=== PATIENT | male | born 1980 | race Caucasian/White ===

== ENCOUNTER 2016-04-07 16:56 | Inpatient (IN) | payer OTHER ==
[~2016-04-07] VITALS: Ht 175.3 cm; Wt 84.1 kg
[2016-04-07 17:00] VITALS: BP 125/80; PULSE 92; RESP 17; RESP 18; TEMP 98.2; O2SAT 98
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
[2016-04-07] MEDS ORDERED: MORPHINE SULFATE 4 MG/ML INJ IV PUSH ONE ×2 (17:15→19:00)
[2016-04-07] MEDS ORDERED: ONDANSETRON HCL 4 MG/2 ML VIAL IV PUSH ONE (17:15)
[2016-04-07] MEDS ORDERED: METH500T3 PO (17:17)
[2016-04-07] MEDS ORDERED: GABA300C5 PO (17:17)
[2016-04-07] MEDS ORDERED: OXYC30TA PO (17:17)
[2016-04-07 17:45] LABS: AUTOMATED NEUTROPHIL # 7.1 TH/MM3 (1.8-7.7); BASOPHIL % 0.4 % (0.0-2.0); EOSINOPHIL # 0.1 TH/MM3 (0-0.4); EOSINOPHIL % 1.4 % (0.0-4.0); HEMATOCRIT 39.2 % (39.0-51.0); HEMO FLAGS DIFF FINAL; LYMPH % 16.8 % (9.0-44.0); LYMPHOCYTE # 1.7 TH/MM3 (1.0-4.8); MEAN CELL VOLUME 88.3 FL (80.0-100.0); MEAN CORPUSCULAR HEMOGLOBIN 29.2 PG (27.0-34.0); MONO % 12.3 % (0.0-8.0); NEUT % 69.1 % (16.0-70.0); PLATELET COUNT 253 TH/MM3 (150-450); RED BLOOD COUNT 4.44 MIL/MM3 (4.50-5.90); RED CELL DISTRIBUTION WIDTH 13.5 % (11.6-17.2); WHITE BLOOD COUNT 10.2 TH/MM3 (4.0-11.0)
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
[2016-04-07 18:04] LABS: BICARBONATE 30.6 MEQ/L (21.0-32.0); POTASSIUM 3.4 MEQ/L (3.5-5.1)
[2016-04-07] MEDS ORDERED: HYDROmorphone HCL PF 1 MG/ML VIAL IV PUSH ONE (19:15)
[2016-04-07 19:18] VITALS: BP 125/82; PULSE 80; PULSE 82; RESP 17; TEMP 97.8; O2SAT 99
[2016-04-07 21:09] VITALS: BP 120/82; PULSE 87; RESP 18; TEMP 98.1; O2SAT 99
[2016-04-07] MEDS ORDERED: POTASSIUM CHLORIDE 20 MEQ CONTROLLED RELEASE TAB PO ONE (21:15)
[2016-04-07] MEDS ORDERED: ONDANSETRON HCL 4 MG/2 ML VIAL IVP PRN (21:30)
[2016-04-07] MEDS ORDERED: ACETAMINOPHEN 325 MG TAB PO PRN ×2 (21:30)
[2016-04-07] MEDS ORDERED: HEPARIN SODIUM - SQ 10,000 UNITS/ML VIAL SQ SCH (21:30)
[2016-04-07] MEDS ORDERED: NALOXONE HCL 0.4 MG/ML AMP IV PRN (21:30)
[2016-04-07] MEDS: NICOTINE 14 MG/24 HR PATCH TD SCH ×2 (21:30→22:08)
[2016-04-07] MEDS ORDERED: TEMAZEPAM 15 MG CAP PO PRN (21:30)
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
[2016-04-07] MEDS: HEPARIN SODIUM - SQ 10,000 UNITS/ML VIAL ONE ×2 (22:05→22:07)
[2016-04-07] MEDS: DOCUSATE SODIUM 100 MG CAP PO SCH (22:55)
[2016-04-07] MEDS: HYDROmorphone HCL PF 1 MG/ML VIAL IV PRN (22:59)
[2016-04-07] MEDS ORDERED: SODIUM CHLOR 0.9% 1000 ML INJ 1,000 ML IV SCH (23:00)
[2016-04-08] MEDS: HYDROmorphone HCL PF 1 MG/ML VIAL IV PRN ×2 (05:25→07:32)
[2016-04-08 06:15] LABS: BICARBONATE 28.8 MEQ/L (21.0-32.0); POTASSIUM 3.6 MEQ/L (3.5-5.1)
[2016-04-08 07:37] VITALS: BP 115/82; PULSE 86; RESP 19; O2SAT 98
[2016-04-08] MEDS: NICOTINE 14 MG/24 HR PATCH TD SCH (08:23)
[2016-04-08] MEDS: SODIUM CHLORIDE 0.9% FLUSH 5 ML FLUSH FLUSH SCH ×2 (08:23→20:19)
[2016-04-08] MEDS: GABAPENTIN 300 MG CAP PO SCH ×2 (08:23→20:17)
[2016-04-08] MEDS: METHOCARBAMOL 500 MG TAB PO SCH (08:23)
[2016-04-08] MEDS: SENNOSIDES 8.6 MG TAB PO SCH (08:24)
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
[2016-04-08] MEDS ORDERED: MIDAZOLAM HCL 2 MG/2 ML VIAL ONE (11:22)
[2016-04-08] MEDS ORDERED: ACETAMINOPHEN 1000 MG/100 ML VIAL IV ONE (11:22)
[2016-04-08] MEDS ORDERED: FAMOTIDINE 20 MG/2 ML VIAL ONE (11:22)
[2016-04-08] MEDS ORDERED: fentaNYL CITRATE 250 MCG/5 ML AMP ONE (11:22)
[2016-04-08] MEDS ORDERED: DEXAMETHASONE SOD PHOS 4 MG/ML VIAL ONE (11:23)
[2016-04-08] MEDS ORDERED: HYDROmorphone HCL PF 2 MG/ML VIAL ONE (11:23)
[2016-04-08] MEDS ORDERED: GENTAMICIN SULFATE 80 MG/2 ML VIAL ONE (11:48)
[2016-04-08] MEDS ORDERED: VANCOMYCIN HCL 1000 MG VIAL ONE (12:04)
[2016-04-08] MEDS ORDERED: ceFAZolin 2 GM PREMIX 50 ML ONE (12:04)
[2016-04-08] MEDS ORDERED: SODIUM CHLOR 0.9% 250 ML INJ 250 ML ONE (12:31)
[2016-04-08] MEDS ORDERED: BACITRACIN TOP OINT 15 GM TUBE ONE ×2 (14:22→14:23)
[2016-04-08] MEDS ORDERED: PROPOFOL 200 MG/20 ML AMP IV ONE (14:26)
[2016-04-08] MEDS ORDERED: PHENYLEPH/NS 1000 MCG/10 ML SYR IV ONE (14:26)
[2016-04-08] MEDS ORDERED: NEOSTIGMINE 3 MG/3 ML SYR IV ONE (14:26)
[2016-04-08] MEDS ORDERED: ONDANSETRON HCL 4 MG/2 ML VIAL IV PUSH ONE (14:26)
[2016-04-08] MEDS ORDERED: SODIUM CHLORIDE 0.9% FLUSH 5 ML FLUSH IVF PRN (14:30)
[2016-04-08] MEDS ORDERED: ACETAMINOPHEN/HYDROcodone 325 MG/10 MG TAB PO PRN ×2 (14:30)
[2016-04-08] MEDS ORDERED: Post-op Orders (for Pharmacy) MISC XX ONE (14:30)
[2016-04-08] MEDS ORDERED: diphenhydrAMINE HCL 25 MG CAP PO PRN (14:30)
--- NOTE | 2016-04-08 14:32 | PD.OP ---
cc: Flako Lott MD Operative Report Date of Surgery: Apr 08, 2016 Preoperative Diagnosis: Comminuted right tibia and fibula shaft fractures Postoperative Diagnosis: Comminuted right tibia and fibula shaft fractures, distal tibia pilon fracture Procedure: Right tibial reduction and intramedullary nail fixation Surgeon: Flako Lott Guard Immigration(s): Cale Benavidez PA-C The surgical procedure was assisted by my physician car rental sales assistant. My P.A. presence was necessary throughout this case for the manipulation and positioning of the surgical extremity. My P.A. was assisting me throughout the duration of this procedure. The skill set of a physician car rental sales assistant was medically necessary to complete this procedure. During the surgical case the medical instrument technician was working at the back table and the physician car rental sales assistant was directly assisting me. Operation and Findings: Implants: ITS [10]mm x [360]mm tibial nail Plan of activity: Nonweightbearing Patient was seen and examined preoperatively. An informed consent was obtained from patient after detailed discussion of risk and benefits. Risks of surgery include bleeding, infection, painful hardware, nonunion, malunion, leg length discrepancy, need for hardware removal, and medical complications associated with anesthesia including blood clots, stroke, heart attack, and were discussed. Operative site was marked. Patient was brought to the operating room placed on or table. Patient received IV antibiotics and was given IV sedation GETA. Operative leg was prepped with alcohol Hibiclens and draped in usual sterile fashion. Timeout procedure was performed Procedure began with reduction of fracture. 2 small incisions were made around the fracture site. A percutaneous clamp was placed. Traction was applied. Fracture was reduced. There was comminution of the fracture. The fracture reduced and excellent alignment was achieved. Fracture clamp was used to aid in reduction. Next a 3 cm incision was made proximal to the patella. Quadriceps tendon was split in line with fibers. Cannulas were placed in the patellofemoral joint to protect the articular surface at all times. A guidepin was placed into the tibia and advanced in the tibial canal. Fluoroscopy was used to confirm appropriate guidepin placement. An opening reamer was used to open the tibial canal. A ball-tipped guidewire was advanced down the tibial canal. Guidepin was passed across the fracture site into the center of the distal tibia. Fluoroscopy confirmed guidepin placement. The nail length was now measured. The fracture was now held in a reduced position and the canal was reamed. The canal was reamed up to appropriate size. A Synthes nail was now selected. Next the nail was fully seated. Using perfect venetie technique 4 distal interlocking screws were placed. Using the insertion handle as a guide 2 proximal interlocking screws were placed. Fluoroscopy confirmed excellent of fracture with well-placed hardware. Incisions and the knee joint were thoroughly irrigated with sterile saline. Patient was also found to have a split of the tibia Pilon. This fracture extended into the articular surface. A fracture tenaculum was placed around the distal tibia 3. Case incisions. The fracture was compressed and clamped into anatomic alignment. Fluoroscopy confirmed excellent alignment of the distal tibia. 2 small incisions were made anteriorly. 2 additional screws were placed from anterior to posterior to capture the posterior fragment. Fluoroscopy confirmed excellent alignment of fracture with well-placed hardware. Next attention was turned to wound closure. Fascia was closed with #1 Vicryl, subcutaneous tissues closed with 3-0 Vicryl and skin was closed with candido sterile dressings were applied patient was awakened and transferred to recovery in stable condition. Flako Lott MD Apr 08, 2016 14:32
[2016-04-08] MEDS ORDERED: DO NOT ADM ANY ANTICOAGULANT DRUGS XX PRN (14:52)
[2016-04-08] MEDS ORDERED: *MEPERIDINE 25 MG INJ VIAL PERIprocedural Use ONLY ONE (15:04)
[2016-04-08] MEDS ORDERED: *morphine SULFATE 8 MG/ML PERIprocedure ONLY ONE ×3 (15:17→15:40)
[2016-04-08] MEDS: LACTATED RINGER'S 1000 ML INJ 1,000 ML IV SCH ×2 (15:20→23:26)
--- NOTE | 2016-04-08 15:32 | RADRPT ---
EXAM DATE/TIME: 04/08/2016 13:05 [facility] COMPARISON: TIBIA/FIBULA RIGHT (AP/LAT), April 07, 2016, 17:21. INDICATIONS : ORIF Right tibia, IM nail. MEDICAL HISTORY : None. SURGICAL HISTORY : None. ENCOUNTER: Subsequent ACUITY: 2 days PAIN SCORE: Non-responsive. LOCATION: Right tibia FINDINGS: FINDINGS: There are postsurgical changes with operative reduction and internal fixation of the previously seen fracture. The alignment is anatomic. CONCLUSION: 1. Postsurgical changes as above. Zack Browne MD on April 08, 2016 at 15:30 Board Certified Radiologist. This report was verified electronically.
[2016-04-08] MEDS ORDERED: *HYDROmorphone PF 1 MG VIAL PERIprocedural Use ONLY ONE (16:00)
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
[2016-04-08] MEDS: CALCIUM/VITAMIN D 250 MG/125 U TAB PO SCH (18:00)
[2016-04-08] MEDS: SODIUM CHLORIDE 0.9% FLUSH 5 ML FLUSH FLUSH PRN (18:03)
[2016-04-08] MEDS: MORPHINE SULFATE 4 MG/ML INJ IV PUSH PRN ×2 (18:04→21:32)
[2016-04-08 18:15] VITALS: O2SAT 98
[2016-04-08 18:46] VITALS: BP 111/69; PULSE 68; RESP 16; TEMP 96; O2SAT 99
[2016-04-08 20:00] VITALS: BP 128/72; PULSE 73; RESP 20; TEMP 97.9; O2SAT 98
[2016-04-08] MEDS: ceFAZolin 2 GM PREMIX 50 ML IV SCH (20:17)
[2016-04-08] MEDS: oxyCODONE/ACETAMINOPHEN 10 MG/325 MG TAB PO PRN (20:18)
[2016-04-08] MEDS ORDERED: SODIUM CHLORIDE 0.9% FLUSH 5 ML FLUSH IVF SCH (21:00)
[2016-04-08] MEDS: DOCUSATE SODIUM 100 MG CAP PO SCH ×2 (23:26→23:29)
[2016-04-08] MEDS: KETOROLAC TROMETHAMINE 30 MG/ML (IVP) VIAL IVP SCH (23:27)
[2016-04-09] VITALS (7 sets, daily range): BP systolic 110–138; BP diastolic 62–74; PULSE 65–99; RESP 16–22; TEMP 96.9–99.7; O2SAT 97–100
[2016-04-09] MEDS: ENOXAPARIN SODIUM 40 MG/0.4 ML SYRINGE SQ SCH (03:29)
[2016-04-09] MEDS: ceFAZolin 2 GM PREMIX 50 ML IV SCH ×3 (05:42→20:09)
[2016-04-09] MEDS: KETOROLAC TROMETHAMINE 30 MG/ML (IVP) VIAL IVP SCH ×2 (05:46→13:15)
--- NOTE | 2016-04-09 06:43 | PD.ORT.PN ---
Subjective Subjective Remarks POD 1 s/p IMN right tibia doing well. pain controlled. no complaints. Objective Vitals Vital Signs Date Time Temp Pulse Resp B/P Pulse Ox O2 Delivery O2 Flow Rate FiO2 04/09/16 04:00 98.0 65 20 112/70 99 04/09/16 00:00 98.6 74 22 110/62 97 04/08/16 20:00 97.9 73 20 128/72 98 04/08/16 18:46 96.0 68 16 111/69 99 04/08/16 18:15 98 04/08/16 17:00 98.2 82 16 128/77 98 Room Air 04/08/16 16:30 76 16 127/76 98 Room Air 04/08/16 16:15 67 16 129/78 98 Room Air 04/08/16 16:00 69 15 135/81 98 Room Air 04/08/16 15:45 72 15 133/87 99 Room Air 04/08/16 15:30 70 15 139/81 99 Room Air 04/08/16 15:15 78 15 143/90 99 Room Air 04/08/16 14:54 98.0 64 14 152/94 99 Simple Mask 6 04/08/16 08:02 16 04/08/16 08:02 16 04/08/16 07:37 86 19 115/82 98 I/O 04/08/16 04/08/16 04/08/16 04/09/16 04/09/16 04/09/16 07:00 15:00 23:00 07:00 15:00 23:00 Intake Total 1100 ml 150 ml Output Total 100 ml Balance 1000 ml 150 ml Intake IV Total 150 ml Other 1100 ml Output Estimated Blood Loss 100 ml Result Diagram: 04/07/16 1715 04/08/16 0521 Objective Remarks RLE: dressings clean and dry. intact. NVI. good dorsiflexion of toes. neg ramona Assessment & Plan Assessment and Plan 1) Right Tibial Shaft Fx s/p IMN - POD 1 -NWB -elevate -dressing change POD 2 -plan for DC home tomorrow if pain controlled and ambulating safely -f/u with Jacob or PA in 2 weeks Tino Tristan Apr 09, 2016 06:43
--- NOTE | 2016-04-09 06:45 | HHI.FF ---
Face to Face Verification Diagnosis: (1) Fracture of tibia with fibula, right, closed Physical Therapy Gait training Right LE Weight Bearing: Non WB Right LE Range of Motion: Active ROM Nursing Dressing Changes: Daily dressing change, Robert wrap, 4x4s, Xeroform I have seen patient Charanjit West on 04/09/16. My clinical findings support the need for the requested home health care services because: Ltd mobility - disease progression I certify that my clinical findings support that this patient is homebound because: Post-op weakness Tino Tristan Apr 09, 2016 06:45
[2016-04-09] MEDS ORDERED: PERC10TA27 PO (06:46)
[2016-04-09] MEDS ORDERED: XARE10TA PO (06:46)
[2016-04-09] MEDS ORDERED: WALKER/ADULT/FO1 MIS (06:48)
[2016-04-09] MEDS: SODIUM CHLORIDE 0.9% FLUSH 5 ML FLUSH FLUSH SCH ×2 (09:00→20:11)
[2016-04-09] MEDS: GABAPENTIN 300 MG CAP PO SCH ×2 (10:01→20:09)
[2016-04-09] MEDS: CALCIUM/VITAMIN D 250 MG/125 U TAB PO SCH ×3 (10:01→17:11)
[2016-04-09] MEDS: SENNOSIDES 8.6 MG TAB PO SCH (10:01)
[2016-04-09] MEDS: METHOCARBAMOL 500 MG TAB PO SCH (10:01)
[2016-04-09] MEDS: NICOTINE 14 MG/24 HR PATCH TD SCH (10:02)
[2016-04-09] MEDS: DOCUSATE SODIUM 100 MG CAP PO SCH ×2 (10:05→23:36)
[2016-04-09] MEDS: MORPHINE SULFATE 4 MG/ML INJ IV PUSH PRN ×4 (10:05→23:37)
[2016-04-09] MEDS: LACTATED RINGER'S 1000 ML INJ 1,000 ML IV SCH ×2 (10:26→20:12)
[2016-04-09] MEDS: SODIUM CHLORIDE 0.9% FLUSH 5 ML FLUSH FLUSH PRN (13:16)
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
[2016-04-10] VITALS: BP 128/77; PULSE 116; RESP 19; TEMP 99.1; O2SAT 100
[2016-04-10] MEDS: oxyCODONE/ACETAMINOPHEN 10 MG/325 MG TAB PO PRN ×3 (00:35→17:50)
[2016-04-10] MEDS: ENOXAPARIN SODIUM 40 MG/0.4 ML SYRINGE SQ SCH (02:42)
[2016-04-10] MEDS: MORPHINE SULFATE 4 MG/ML INJ IV PUSH PRN ×7 (02:43→21:50)
[2016-04-10] MEDS: ceFAZolin 2 GM PREMIX 50 ML IV SCH ×2 (04:06→11:28)
[2016-04-10] MEDS: LACTATED RINGER'S 1000 ML INJ 1,000 ML IV SCH ×3 (05:56→23:12)
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
[2016-04-10] MEDS: CALCIUM/VITAMIN D 250 MG/125 U TAB PO SCH ×3 (07:39→17:02)
[2016-04-10] MEDS: SENNOSIDES 8.6 MG TAB PO SCH (07:39)
[2016-04-10] MEDS: SODIUM CHLORIDE 0.9% FLUSH 5 ML FLUSH FLUSH SCH ×2 (07:39→19:55)
[2016-04-10] MEDS: METHOCARBAMOL 500 MG TAB PO SCH (07:39)
[2016-04-10] MEDS: GABAPENTIN 300 MG CAP PO SCH ×2 (07:39→19:54)
[2016-04-10] MEDS: DOCUSATE SODIUM 100 MG CAP PO SCH ×2 (07:39→21:49)
[2016-04-10] MEDS: NICOTINE 14 MG/24 HR PATCH TD SCH (07:40)
[2016-04-10 08:00] VITALS: BP 129/80; PULSE 112; RESP 18; TEMP 97; O2SAT 99
[2016-04-10] MEDS: MAGNESIUM HYDROXIDE SUSP 30 ML CUP PO PRN (08:23)
[2016-04-10 11:34] VITALS: BP 127/78; PULSE 86; RESP 16; TEMP 98; O2SAT 95
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
[2016-04-10 16:22] VITALS: BP 132/83; PULSE 98; RESP 19; TEMP 99; O2SAT 98
[2016-04-10] MEDS: BISACODYL EC 5 MG TABEC PO SCH (19:54)
[2016-04-10] MEDS: POLYETHYLENE GLYCOL 17 GM PKG PO SCH (19:54)
[2016-04-10 20:40] VITALS: BP 117/75; PULSE 105; RESP 17; TEMP 98.5; O2SAT 100
[2016-04-11 00:45] VITALS: BP 118/69; PULSE 104; RESP 17; TEMP 98.4; O2SAT 96
[2016-04-11] MEDS: oxyCODONE/ACETAMINOPHEN 10 MG/325 MG TAB PO PRN ×4 (01:21→18:39)
[2016-04-11 01:47] LABS: AMPHETAMINE, URINE NEG (NEG); BARBITURATES, URINE NEG (NEG); COCAINE, URINE NEG (NEG)
[2016-04-11] MEDS: ENOXAPARIN SODIUM 40 MG/0.4 ML SYRINGE SQ SCH (03:57)
[2016-04-11 04:15] VITALS: BP 117/74; PULSE 102; RESP 17; TEMP 98.2; O2SAT 97
[2016-04-11] MEDS: LACTATED RINGER'S 1000 ML INJ 1,000 ML IV SCH (07:50)
[2016-04-11 08:00] VITALS: BP 102/71; PULSE 95; RESP 19; TEMP 99.3; O2SAT 98
[2016-04-11] MEDS: CALCIUM/VITAMIN D 250 MG/125 U TAB PO SCH ×3 (08:01→18:39)
[2016-04-11] MEDS: METHOCARBAMOL 500 MG TAB PO SCH (08:01)
[2016-04-11] MEDS: DOCUSATE SODIUM 100 MG CAP PO SCH (08:01)
[2016-04-11] MEDS: MAGNESIUM HYDROXIDE SUSP 30 ML CUP PO PRN (08:01)
[2016-04-11] MEDS: GABAPENTIN 300 MG CAP PO SCH (08:01)
[2016-04-11] MEDS: SENNOSIDES 8.6 MG TAB PO SCH (08:01)
[2016-04-11] MEDS: BISACODYL EC 5 MG TABEC PO SCH (08:02)
[2016-04-11] MEDS: SODIUM CHLORIDE 0.9% FLUSH 5 ML FLUSH FLUSH SCH (08:02)
[2016-04-11] MEDS: POLYETHYLENE GLYCOL 17 GM PKG PO SCH (08:03)
[2016-04-11] MEDS: NICOTINE 14 MG/24 HR PATCH TD SCH (08:03)
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
[2016-04-11] MEDS ORDERED: COLA100C3 PO (10:17)
[2016-04-11 12:00] VITALS: BP 114/64; PULSE 128; RESP 19; TEMP 96.7; O2SAT 95
[2016-04-11] MEDS ORDERED: XARE20TA PO (12:16)
== END 2016-04-11 19:04 | disposition home or self-care (01) | DRG 494 ==
LOC: NEPA 16:56 → NEDA 21:13 → NEDH 04-08 10:01 → N06A 04-08 17:36
PROVIDERS: ADMIT Hospitalist; ATTEND Hospitalist
PROC: 0QSG06Z Reposition Right Tibia with Intramedullary Internal Fixation Device, Open Approach (ICD-10-PCS; principal; 2016-04-07)
DX: S82.201A Unspecified fracture of shaft of right tibia, initial encounter for closed fracture (principal); E87.6 Hypokalemia; S82.871A Displaced pilon fracture of right tibia, initial encounter for closed fracture; S82.401A Unspecified fracture of shaft of right fibula, initial encounter for closed fracture; G89.29 Other chronic pain; M54.30 Sciatica, unspecified side; F17.210 Nicotine dependence, cigarettes, uncomplicated; Z86.61 Personal history of infections of the central nervous system
CPT/HCPCS: 29505; 73590; 76000; 80048; 80307; 85025; 94150; 96374; 96375; 96376; J0131; J0690; J1100; J1170; J1580; J1644; J1650; J1885; J2175; J2250; J2270; J2370; J2405; J2710; J3010; J3370; J7030; J7050; J7120